=== PATIENT | female | born 1960 | race Caucasian/White ===

== ENCOUNTER → 2016-12-02 | Outpatient (CLI) | payer OTHER ==
[2016-12-02 13:02] LABS: BLOOD UREA NITROGEN 17 mg/dl (7-18); BUN/CREATININE RATIO 17.2 (10-20); CALCIUM 9.3 mg/dl (8.5-10.1); CARBON DIOXIDE 28 mmol/L (21-32); CHLORIDE 107 mmol/L (98-107); CHOLESTEROL 207 mg/dl (0-200); GLUCOSE 113 mg/dl (70-99); MAGNESIUM 2.3 mg/dl (1.8-2.4); POTASSIUM 4.4 mmol/L (3.5-5.1); SODIUM 139 mmol/L (136-145); TRIGLYCERIDES 88 mg/dl (0-150); VERY LOW DENSITY LIPOPROT CALC 18 mg/dl
[2016-12-02 13:13] LABS: CHOLESTEROL/HDL RATIO 2.4; HDL CHOLESTEROL 86 mg/dl; LDL CHOLESTEROL CALCULATED 103 mg/dl
== END | disposition home or self-care (01) ==
LOC: C.LABPBG 07:33 → MERGE 07:33
PROVIDERS: ATTEND Family Medicine
DX: R25.2 Cramp and spasm (principal); R73.03 Prediabetes; E06.3 Autoimmune thyroiditis; E55.9 Vitamin D deficiency, unspecified; Z13.220 Encounter for screening for lipoid disorders; Z11.59 Encounter for screening for other viral diseases

== ENCOUNTER → 2017-09-19 | Outpatient (CLI) | payer OTHER | END | disposition home or self-care (01) | LOC: C.PATHSPEC 16:48 | PROVIDERS: ATTEND Surgery | DX: C43.72 Malignant melanoma of left lower limb, including hip (principal) ==

== ENCOUNTER → 2017-09-19 | Outpatient (CLI) | payer OTHER ==
--- NOTE | 2017-09-19 16:45 | DIAGNOSTIC IMAGING REPORT ---
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 FINDINGS: The bones soft tissues and hemidiaphragms are normal. The cardiomediastinal silhouette is normal. The lungs are clear. The pulmonary vasculature is normal. IMPRESSION: Negative chest. The above report was generated using voice recognition software. It may contain grammatical, syntax or spelling errors. Electronically signed by: Wilfrido Moran M.D. 09/19/2017 4:44 PM Dictated Date/Time: 09/19/2017 4:43 PM
== END | disposition home or self-care (01) ==
LOC: C.RAD 16:11
PROVIDERS: ATTEND Dermatology
DX: C43.70 Malignant melanoma of unspecified lower limb, including hip (principal)